=== PATIENT | female | born 1950 | race Caucasian/White ===

== ENCOUNTER → 2017-03-23 | Outpatient (CLI) | payer MEDICARE, OTHER | END | disposition home or self-care (01) | LOC: GMAJ 17:15 | PROVIDERS: ATTEND Family Medicine | DX: D51.3 Other dietary vitamin B12 deficiency anemia (principal); E55.9 Vitamin D deficiency, unspecified ==

== ENCOUNTER → 2017-05-30 | Outpatient (CLI) | payer MEDICARE, OTHER | END | disposition home or self-care (01) | LOC: LAB.O 14:28 | PROVIDERS: ATTEND Internal Medicine | DX: K74.60 Unspecified cirrhosis of liver (principal); K76.0 Fatty (change of) liver, not elsewhere classified ==

== ENCOUNTER → 2017-12-02 | Outpatient (CLI) | payer MEDICARE, OTHER | LOC: LAB.O 14:56 | PROVIDERS: ATTEND Internal Medicine | DX: K74.60 Unspecified cirrhosis of liver (principal) ==

== ENCOUNTER → 2018-03-28 | Outpatient (CLI) | payer MEDICARE, OTHER | LOC: GMAL 16:37 | PROVIDERS: ATTEND Family Medicine | DX: D51.3 Other dietary vitamin B12 deficiency anemia (principal); E55.9 Vitamin D deficiency, unspecified ==

== ENCOUNTER → 2018-06-21 | Outpatient (CLI) | payer MEDICARE, OTHER | LOC: LAB.O 14:42 | PROVIDERS: ATTEND Internal Medicine | DX: K74.60 Unspecified cirrhosis of liver (principal); K76.0 Fatty (change of) liver, not elsewhere classified; I85.10 Secondary esophageal varices without bleeding; T82.868A Thrombosis due to vascular prosthetic devices, implants and grafts, initial encounter ==

== ENCOUNTER → 2018-06-22 | Outpatient (CLI) | payer MEDICARE, OTHER ==
--- NOTE | 2018-06-23 14:06 | MAM ---
EXAM DESCRIPTION: 3D Screening BILATERAL : Digital Mammography. CLINICAL HISTORY: 68 years Female SCREENING . No personal history or family history of breast cancer. Childbirth. Postmenopausal: Hysterectomy. Taking HRT 5 or more years ago. "Fibrocystic breast tissue.". Lifetime risk of developing breast cancer (Tyrer-Cuzick model) is 6.1 %. COMPARISON: 2-D digital screening bilateral study 02/18/2015. No prior reports available. TECHNIQUE: Bilateral CC and MLO projection full-field images, Digital tomosynthesis mammographic technique. Bilateral digital 2-D full-field MLO images. CAD not utilized. FINDINGS: The breast parenchymal density pattern is: Scattered areas of fibroglandular density. No skin thickening or nipple retraction. Tissue is heterogeneously dense in the anterior thirds including retroareolar regions bilaterally. No new focal, stellate mass or density, focal asymmetry , and no suspicious microcalcifications bilaterally. Stable mammograms compared to prior study. Taking into account, differences in mammographic technique. IMPRESSION: Benign exam. BIRAD CATEGORY: 2 BENIGN FINDINGS. RECOMMENDATIONS: FOLLOW UP: Routine digital bilateral screening, one year interval from May 2018. Written communication explaining the IMPRESSION and follow-up, will be mailed to the patient and referring health care provider. According to the [employer], yearly mammograms are recommended starting at age 40 and continuing as long as a woman is in good health. Any breast change noted on a breast self-exam should be reported promptly to the patient's healthcare provider. Breast MRI is recommended for women with an approximately 20-25% or greater lifetime risk of breast cancer, including women with a strong family history of breast or ovarian cancer and women who have been treated for Hodgkin's disease. A negative mammographic report should not delay tissue diagnosis in patients with significant clinical history or physical findings. Extremely dense breast tissue limits the sensitivity of digital mammography. Electronically signed by: Roman Junior MD 06/23/2018 2:05 PM CDT
== END ==
LOC: MAMMO 14:00
PROVIDERS: ATTEND Family Medicine
DX: Z12.31 Encounter for screening mammogram for malignant neoplasm of breast (principal)

== ENCOUNTER → 2018-09-26 | Outpatient (CLI) | payer MEDICARE, OTHER | LOC: GMAL 17:01 | PROVIDERS: ATTEND Family Medicine | DX: K74.60 Unspecified cirrhosis of liver (principal); K76.0 Fatty (change of) liver, not elsewhere classified; I10 Essential (primary) hypertension; E55.9 Vitamin D deficiency, unspecified; R79.89 Other specified abnormal findings of blood chemistry ==

== ENCOUNTER → 2018-11-15 | Outpatient (CLI) | payer MEDICARE, OTHER ==
--- NOTE | 2018-11-16 14:35 | US ---
EXAM DESCRIPTION: Abdomen,Complete: Ultrasound. CLINICAL HISTORY: LIVER CIRRHOSIS COMPARISON: None Available. TECHNIQUE: Transabdominal scannin-dimensional and Doppler modes. FINDINGS: Gallbladder: Normal size and echogenicity with no stones or sludge. No wall thickening, 2 mm, and no or fluid. Nontender with transducer pressure. Common bile duct: Normal caliber 3 mm. Liver: Long axis right lobe 14 cm. Heterogeneous increased density. Normal hepatopedal flow of the portal vein. Normal caliber. No intrahepatic biliary dilatation. Minimal lobulation of the capsule. No ascites. Pancreas: Included tissue normal echogenicity and ducts not seen. Abdominal aorta: 2.5 cm proximally and 2.7 cm distally with ectasia. IVC: visualized; normal caliber. Spleen normal echogenicity; long axis measurement is 16.2 cm. Right kidney: 9.1 cm long axis. Thin cortex with increased echogenicity but less than the liver. Lobulated capsule No hydronephrosis or perinephric fluid. 1.5 cm anechoic cyst. Left kidney: 11.8 cm long axis with thin cortex, lobulation of the capsule, and increased echogenicity. No hydronephrosis or perinephric fluid. 3.4 x 2.2 cm cyst. IMPRESSION: 1. Small echogenicity dense echogenic liver with lobulated capsule consistent with cirrhosis. Hepatopedal portal vein flow. Normal ducts. No ascites. 2. Splenomegaly with no focal lesions. No ascites. 3. Bilateral kidneys with chronic disease indicated by increased echogenicity, thin cortex and lobulated capsule. Pancreas and gallbladder are unremarkable. Normal caliber of the common bile duct. 4. Ectatic aorta but no aneurysm. Normal caliber of the IVC. Electronically signed by: Roman Junior MD 11/16/2018 2:33 PM [facility]
== END ==
LOC: US 13:07
PROVIDERS: ATTEND Internal Medicine
DX: K74.60 Unspecified cirrhosis of liver (principal); R16.1 Splenomegaly, not elsewhere classified; I77.819 Aortic ectasia, unspecified site

== ENCOUNTER → 2019-04-11 | Outpatient (CLI) | payer MEDICARE, OTHER | LOC: LAB.O 15:40 | PROVIDERS: ATTEND Internal Medicine | DX: K74.60 Unspecified cirrhosis of liver (principal) ==

== ENCOUNTER → 2019-04-20 | Outpatient (CLI) | payer MEDICARE, OTHER | LOC: GMAL 13:54 | PROVIDERS: ATTEND Family Medicine | DX: E53.8 Deficiency of other specified B group vitamins (principal); E11.9 Type 2 diabetes mellitus without complications; R53.83 Other fatigue; Z79.899 Other long term (current) drug therapy ==

== ENCOUNTER → 2019-05-22 | Outpatient (CLI) | payer MEDICARE, OTHER ==
--- NOTE | 2019-05-23 15:06 | US ---
EXAM DESCRIPTION: Abdomen,Complete: Ultrasound. CLINICAL HISTORY: AAA, CIRRHOSIS COMPARISON: None Available. TECHNIQUE: Transabdominal scannin-dimensional and Doppler modes.. Technically difficult study due to patient body habitus. FINDINGS: Gallbladder: No intraluminal stones or sludge. Mild wall thickening 3.5 mm. No surrounding fluid. Nontender with transducer pressure. Common bile duct: 3.5 mm normal caliber. Liver: Long axis of the right lobe is 15.1 cm. Homogeneous echogenicity which is increased. Smooth capsule with no ascites. Normal ducts and caliber of the portal vein with hepatopedal flow. Pancreas: Not well seen. Duct not seen.. Abdominal aorta: 3.44 cm proximally, 3.1 cm mid aorta and 2.5 cm distal aorta. IVC: visualized; normal caliber. Spleen normal echogenicity; long axis measurement is 15.5 cm. Enlarged. Right kidney: 9.9 cm long axis with cortical thinning but normal echogenicity. No echogenic stones, no hydronephrosis, no perinephric fluid. Left kidney: 9.4 cm long axis with cortical thinning but normal cortical echogenicity. No hydronephrosis, no echogenic stones, and no perinephric fluid. IMPRESSION: 1. Steatosis of the liver but not enlarged. Normal ducts and vessels. Smooth capsule but not ascites. Pancreas not well seen. 2. Gallbladder wall thickening but no intraluminal stones or sludge. No pericholecystic fluid. Normal caliber common bile duct. 3. Splenic enlargement. Normal caliber of the IVC. 4. Bilateral kidneys with thin cortex but normal echogenicity. No hydronephrosis or perinephric fluid. 5. 3.4 cm abdominal aortic aneurysm. Recommend follow-up every 3 years. Reference: J Am Tiffani Radiol 2013;10:789-794. Electronically signed by: Roman Junior MD 05/23/2019 3:05 PM CDT
== END ==
LOC: US 14:50
PROVIDERS: ATTEND Family Medicine
DX: I71.3 Abdominal aortic aneurysm, ruptured (principal); K74.60 Unspecified cirrhosis of liver; K76.0 Fatty (change of) liver, not elsewhere classified; K87 Disorders of gallbladder, biliary tract and pancreas in diseases classified elsewhere

== ENCOUNTER 2019-07-19 11:47 | Emergency (ER) | payer MEDICARE, OTHER ==
[2019-07-19] MEDS ORDERED: SODIUM CHLORIDE 0.9% (FLUSH) 10 ML SYG IV PRN (12:10)
--- NOTE | 2019-07-19 12:59 | CT ---
EXAM DESCRIPTION: Head CLINICAL HISTORY: expressive aphasia x 24 hours COMPARISON: None TECHNIQUE: Noncontrast transaxial CT images of the head are obtained from base to vertex. This exam was performed according to our departmental dose-optimization program, which includes automated exposure control, adjustment of the mA and/or kV according to patient size and/or use of iterative reconstruction technique. FINDINGS: The midline structures are not displaced. Sulci are age-appropriate. There are areas of decreased attenuation in the periventricular white matter and the white matter of the centrum semiovale. There is no evidence of mass, mass-effect, hydrocephalus, or acute intracranial hemorrhage. No abnormal extra axial fluid collection is seen. Bone windows show no evidence of depressed skull fracture. The visualized paranasal sinuses are unremarkable. IMPRESSION: 1. Age-appropriate atrophy with evidence of old small vessel ischemic type changes seen. 2. No acute abnormality is seen on noncontrast CT of the head. Electronically signed by: Vargas Serrano MD 07/19/2019 12:57 PM CDT
--- NOTE | 2019-07-19 13:02 | RAD ---
EXAM DESCRIPTION: Chest,1 View CLINICAL HISTORY: expressive aphasia x 24 hours COMPARISON: April 04, 2018 TECHNIQUE: Single frontal view of the chest FINDINGS: Mild calcific atherosclerosis and tortuosity of thoracic aorta. Cardiac silhouette shows normal heart size. Pulmonary vascularity is within normal limits. Lungs show no confluent infiltrates. No perfusion. No pneumothorax. Visualized osseous structures show no destructive lesions. IMPRESSION: No acute cardiopulmonary process. Electronically signed by: New Ward MD 07/19/2019 1:01 PM CDT
[2019-07-19] MEDS ORDERED: ONDANSETRON INJ 4 MG/2 ML VIAL ONE (13:46)
[2019-07-19] MEDS ORDERED: ONDANSETRON INJ 4 MG/2 ML VIAL IV ONE ×2 (13:49→15:35)
--- NOTE | 2019-07-19 14:55 | ED.PDOC ---
History of Present Illness - General Chief Complaint: GI Problem Stated Complaint: WEAKNESS Time Seen by Provider: 07/19/19 12:10 Source: patient, RN notes reviewed, Vital Signs reviewed, family - , RN/MD - Dr. David Exam Limitations: no limitations - History of Present Illness Initial Comments: Pt was sent from Dr. David' office b/c of anemia/gi bleed but also because of an epxpressive aphasia with concerns for a sub acute stroke. Pt noted the aphasia starting yesterday morning. Pt has had black tarry stool for the last few days. Pt also c/o dysuria. Pt denies f/c/n/v/d. No blurry vision but pt is dizzy and has nystagmus. Severity: moderate Improving Factors: nothing Worsening Factors: nothing Associated Symptoms: malaise, weakness Allergies/Adverse Reactions: Allergies Amoxicillin [From Augmentin] Adverse Reaction (Verified 07/19/19 12:06) Clavulanic Acid [From Augmentin] Adverse Reaction (Verified 07/19/19 12:06) Prochlorperazine [From Compazine] Adverse Reaction (Verified 07/19/19 12:06) Review of Systems - Review of Systems Constitutional: States: see HPI EENTM: States: see HPI Respiratory: States: no symptoms reported Cardiology: States: no symptoms reported Gastrointestinal/Abdominal: States: see HPI Genitourinary: States: see HPI, dysuria Musculoskeletal: States: no symptoms reported Skin: States: no symptoms reported Neurological: States: other - expressive aphasia Endocrine: States: no symptoms reported Hematologic/Lymphatic: States: no symptoms reported Past Medical History (General) - Patient Medical History Hx Asthma: No Hx of COPD: No Hx Congestive Heart Failure: No Hx Hypertension: Yes Hx Diabetes: No Hx Gastroesophageal Reflux: Yes Hx Cancer: No Hx Hepatitis C: No Surgical History: tonsillectomy, Hysterectomy - Vaccination History Hx Tetanus, Diphtheria Vaccination: Yes Hx Influenza Vaccination: Yes Hx Pneumococcal Vaccination: No - Social History Hx Tobacco Use: No Hx Alcohol Use: No Hx Substance Use: No Hx Substance Use Treatment: No Hx Depression: No - Female History Patient is a Female of Child Bearing Age (10 -59 yrs old): No Family Medical History - Family History Mother Family History: Unknown Physical Exam - Physical Exam General Appearance: Alert, Anxious, Well Developed, Well Groomed, Well Hydrated, Well Nourished Eye Exam: bilateral normal Ears, Nose, Throat: hearing grossly normal, normal ENT inspection, normal pharynx Neck: non-tender, full range of motion, supple, normal inspection Respiratory: chest non-tender, lungs clear, normal breath sounds, no respiratory distress, no accessory muscle use, respiratory distress Cardiovascular/Chest: normal peripheral pulses, regular rate, rhythm, no edema, no gallop, no JVD, no murmur Peripheral Pulses: radial,right: 2+, radial,left: 2+ Gastrointestinal/Abdominal: normal bowel sounds, non tender, soft, no organomegaly Rectal Exam: heme positive stool Back Exam: normal inspection, no CVA tenderness, no vertebral tenderness Extremity: normal range of motion, non-tender, normal inspection, no pedal edema 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, no motor/sensory deficits, alert, normal mood/affect, oriented x 3, aphasia, other - pt with mild expressive aphasia Skin Exam: normal color, warm/dry Lymphatic: no adenopathy Progress - Progress Progress: 07/19/19 15:01 07/19/19 12:10 IV Care:Saline Lock per Protoc QSHIFT Telemetry .ONCE Sodium Chloride 0.9% (Flush) [Saline Flush Syringe] 10 ml IV PRN PRN 07/19/19 12:15 EKG STAT Laboratory Results - last 24 hr 07/19/19 07/19/19 07/19/19 12:25 12:25 12:25 WBC 10.2 RBC 2.93 L Hgb 8.9 L Hct 26.7 L MCV 91.0 MCH 30.4 MCHC 33.4 RDW 16.5 H Plt Count 95 L MPV 10.4 Absolute Neuts (auto) 7.40 H Absolute Lymphs (auto) 2.20 Absolute Monos (auto) 0.40 Absolute Eos (auto) 0.10 Absolute Basos (auto) 0.10 Neutrophils % 72.8 Lymphocytes % 21.6 Monocytes % 4.3 Eosinophils % 0.5 L Basophils % 0.8 PT 12.1 H INR 1.21 H PTT (SP) 22.1 Sodium 143 Potassium 4.0 Chloride 115 H Carbon Dioxide 18 L Anion Gap 14.0 BUN 57 H Creatinine 0.84 BUN/Creatinine Ratio 67.9 H POC Glucose Random Glucose 120 H Serum Osmolality 302.0 H Calcium 9.5 Total Bilirubin 1.4 H AST 43 H ALT 36 Alkaline Phosphatase 60 Creatine Kinase 53 CK-MB (CK-2) 1.1 CK-MB (CK-2) % Not Reportable Troponin I < 0.02 Serum Total Protein 6.5 Albumin 3.6 Globulin 2.9 Albumin/Globulin Ratio 1.2 Stool Occult Blood Patient ABO/Rh Antibody Screen 07/19/19 07/19/19 07/19/19 12:25 12:25 13:25 WBC RBC Hgb Hct MCV MCH MCHC RDW Plt Count MPV Absolute Neuts (auto) Absolute Lymphs (auto) Absolute Monos (auto) Absolute Eos (auto) Absolute Basos (auto) Neutrophils % Lymphocytes % Monocytes % Eosinophils % Basophils % PT INR PTT (SP) Sodium Potassium Chloride Carbon Dioxide Anion Gap BUN Creatinine BUN/Creatinine Ratio POC Glucose 121 H Random Glucose Serum Osmolality Calcium Total Bilirubin AST ALT Alkaline Phosphatase Creatine Kinase CK-MB (CK-2) CK-MB (CK-2) % Troponin I Serum Total Protein Albumin Globulin Albumin/Globulin Ratio Stool Occult Blood Positive Patient ABO/Rh O POSITIVE Antibody Screen Negative 07/19/19 15:03 Pt's symptoms have not changed. I believe pt had a mild CVA yesterday and she also has an upper gi bleed. After d/w her gi specialist, Dr. Emiliano Elena and he requests we send her to [facility]. I will arrange transfer and admission. 07/19/19 20:19 Noel Carranza M.D. #[id number] - Results/Orders Results/Orders: EXAM DESCRIPTION: CT Head w/o contrast. CLINICAL HISTORY: expressive aphasia x 24 hours COMPARISON: None TECHNIQUE: Noncontrast transaxial CT images of the head are obtained from base to vertex. This exam was performed according to our departmental dose-optimization program, which includes automated exposure control, adjustment of the mA and/or kV according to patient size and/or use of iterative reconstruction technique. FINDINGS: The midline structures are not displaced. Sulci are age-appropriate. There are areas of decreased attenuation in the periventricular white matter and the white matter of the centrum semiovale. There is no evidence of mass, mass-effect, hydrocephalus, or acute intracranial hemorrhage. No abnormal extra axial fluid collection is seen. Bone windows show no evidence of depressed skull fracture. The visualized paranasal sinuses are unremarkable. IMPRESSION: 1. Age-appropriate atrophy with evidence of old small vessel ischemic type changes seen. 2. No acute abnormality is seen on noncontrast CT of the head. Electronically signed by: Vargas Serrano MD 07/19/2019 12:57 PM CDT Chest,1 View CLINICAL HISTORY: expressive aphasia x 24 hours COMPARISON: April 04, 2018 TECHNIQUE: Single frontal view of the chest FINDINGS: Mild calcific atherosclerosis and tortuosity of thoracic aorta. Cardiac silhouette shows normal heart size. Pulmonary vascularity is within normal limits. Lungs show no confluent infiltrates. No perfusion. No pneumothorax. Visualized osseous structures show no destructive lesions. IMPRESSION: No acute cardiopulmonary process. Electronically signed by: New Ward MD 07/19/2019 1:01 PM CDT - [id number] - EKG/XRAY/CT Comments: NSR@92 bpm, possible ant infarct, age indeterminate, abnormal ekg. Departure - Departure Clinical Impression: Upper GI bleed, Dysuria CVA (cerebral vascular accident) Qualifiers: CVA mechanism: unspecified Qualified Code(s): I63.9 - Cerebral infarction, unspecified Time of Disposition: 15:11 - awaiting transfer Disposition: Transfer to Hospital Condition: Fair Departure Forms: ED Discharge - Pt. Copy, Patient Portal Self Enrollment Referrals: New David III, MD [Primary Care Provider] - 1-2 Weeks Critical Care Note - Critical Care Note Total Time (mins): 45 - Does not include time for procedures
[2019-07-19 18:11] VITALS: BP 139/66; TEMP 98; O2SAT 98
== END 2019-07-19 17:55 | disposition short-term general hospital (02) ==
LOC: ER 11:47
DX: I63.9 Cerebral infarction, unspecified (principal); R47.01 Aphasia; K92.1 Melena; R30.0 Dysuria; R94.31 Abnormal electrocardiogram [ECG] [EKG]; I10 Essential (primary) hypertension; K21.9 Gastro-esophageal reflux disease without esophagitis; Z88.1 Allergy status to other antibiotic agents; Z88.8 Allergy status to other drugs, medicaments and biological substances
CPT/HCPCS: 36415; 36416; 70450; 71045; 80053; 81001; 82270; 82550; 82553; 82948; 84484; 85025; 85610; 85730; 86850; 86900; 86901; 87086; 93005; J2405

== ENCOUNTER → 2019-07-24 | Outpatient (CLI) | payer MEDICARE, OTHER | LOC: GRHH 11:49 | PROVIDERS: ATTEND Family Medicine | DX: D62 Acute posthemorrhagic anemia (principal); K75.81 Nonalcoholic steatohepatitis (NASH) ==

== ENCOUNTER → 2019-07-26 | Outpatient (CLI) | payer MEDICARE, OTHER | LOC: GMAL 14:20 | PROVIDERS: ATTEND Family Medicine | DX: D50.0 Iron deficiency anemia secondary to blood loss (chronic) (principal) ==

== ENCOUNTER 2019-08-08 13:09 | Observation (INO) | payer MEDICARE, OTHER ==
--- NOTE | 2019-08-09 16:29 | HP ---
SUPERVISING PHYSICIAN: Attila Graham M.D. CHIEF COMPLAINT: Weakness and change in mental status. HISTORY OF PRESENT ILLNESS: This is a 69 year-old female patient who has a history of nonalcoholic fatty liver disease. She was actually in the Emergency Room in the hospital on 07/19/19. At that time she was found to have similar symptoms. She had some mental status changes with some mild aphasia and was found to have a hemoglobin at that was 8.9 with hematocrit 26.7. She was given some hydration and was found to have some gastrointestinal bleeding. She was sent to [place] and found to have esophageal varices. She had 5 of her varices banded. Her hemoglobin dropped to as low as 6. She has been home approximately 3 weeks. Today she again had some altered mental status and with extreme weakness. She was in the bathtub and her home health nurse came for a visit. The patient was unable to get out of the tub and the nurse actually had to take the door off the hinges to get to the patient. She assisted her out of the bathroom and then Dr. David was called. Lab had been done. WBCs were 2,000 with hemoglobin 9.5, hematocrit 29, platelets 54. She does have chronic thrombocytopenia and leukopenia. Electrolytes were basically within normal limits. Iron saturation was low at 18.[address] David spoke to the physician that did the procedure 3 weeks ago and he felt that she could be placed in the hospital for observation as well as close monitoring of any possible bleeding as well as her monitoring her H&H. She was directly admitted to the hospital in stable condition. Her initial vital signs showed temperature 97.8, heart rate 70, blood pressure 131/77, respiratory rate 16, O2 sat 99% on 2 liters nasal cannula. The patient was in stable condition after her admission for observation to the Medical/Surgical Unit. PAST MEDICAL HISTORY: 1. Hypertension. 2. Nonalcoholic fatty liver disease with cirrhosis. 3. Recent diagnoses of esophageal varices with banding approximately 3 weeks ago. 4. Portal hypertension secondary to cirrhosis. 5. Type 2 diabetes mellitus. PAST SURGICAL HISTORY: 1. Tonsillectomy and adenoidectomy. 2. Dilatation and curettage for retained placental fragments. 3. Hysterectomy. 4. Cervical laminectomy. 5. Exploratory laparotomy for ruptured corpus luteum cyst. 6. Excision of lipoma from right axilla. 7. Exploratory laparotomy for lysis of adhesions. 8. Bunionectomy of the left great toe. OUTPATIENT MEDICATIONS: Per the EMR and awaiting verification. ALLERGIES: AMOXICILLIN, AUGMENTIN AND COMPAZINE. SOCIAL HISTORY: She is a retired nurse. She is . She has 2 children. She has [facility]. She has smoked for many years but only smoked 1 to 5 cigarettes daily. She quit about 1 month ago. She drinks alcohol very infrequently and denies any illicit drug use. REVIEW OF SYSTEMS: GENERAL: Positive for fatigue. Negative for fever or weight changes. HEENT: Negative for sinus symptoms, ear pain, vision changes or sore throat. RESPIRATORY: Negative for coughing wheezing or shortness of breath. CARDIAC: Negative for chest pain, palpitations or tachycardia. GASTROINTESTINAL: Negative for nausea, vomiting, diarrhea or constipation. Please see the History of Present Illness. GENITOURINARY: Negative for hematuria, dysuria or polyuria. SKIN: Negative for lesions or rashes. NEUROLOGIC: Positive for weakness as well as some mild aphasia. Negative for headaches or seizures. HEMATOLOGIC: As per the History of Present Illness. PHYSICAL EXAMINATION: VITAL SIGNS: Temperature 97.8, heart rate 70, blood pressure 131/77, respiratory rate 16, O2 sat 99% on 2 liters nasal cannula. GENERAL: This is a 69 year-old female patient who is lying in her hospital bed. She is in no acute distress. HEENT: Normocephalic and atraumatic. Pupils are equal and reactive. Oropharynx is clear. NECK: Supple without mass. RESPIRATORY: Essentially clear to auscultation bilaterally. CHEST: There is equal rise and fall of the chest with inspiration and expiration. CARDIOVASCULAR: Regular rate and rhythm. GASTROINTESTINAL: Abdomen is soft, nondistended, non-tender. Bowel sounds are positive. EXTREMITIES: +1 edema bilaterally. No cyanosis or clubbing. SKIN: Warm and dry. NEUROLOGIC: Her speech is slowed and she takes some time to answer questions, but otherwise her cranial nerves II-XII are grossly intact. LABORATORY: Labs and films are as per the History of Present Illness. ASSESSMENT: 1. Anemia, normochromic/microcytic most likely due to esophageal varices. 2. Nonalcoholic fatty liver disease with cirrhosis may be contributing to #1. 3. Altered mental status that has improved with mild dysphasia. 4. Recent diagnosis of esophageal varices. She had banding about 3 weeks ago. 5. Portal hypertension. 6. Diabetes mellitus type 2. 7. Hypertension on medications. 8. Chronic thrombocytopenia secondary to #2. 9. Leukopenia, chronic. PLAN: The patient has been placed in Observation. She will be gently hydrated overnight. I will recheck her CBC at 10:00 tonight and will recheck her labs in the morning. If she deteriorates overnight we can transfer to [facility]. Otherwise, neuro checks are ordered and I'll restart her home meds once verified. I've started a PPI for ulcer prophylaxis and SDCs for DVT prophylaxis. We will monitor closely and follow as needed. #[id number] [facility]
[2019-08-09] MEDS ORDERED: ONDANSETRON INJ 4 MG/2 ML VIAL IV PRN (17:06)
[2019-08-09] MEDS ORDERED: SODIUM CHLORIDE 0.9% (FLUSH) 10 ML SYG IV PRN (17:06)
[2019-08-09] MEDS ORDERED: SODIUM CHLORIDE 0.45% 1000ML 1,000 ML IVS ONE (17:19)
[2019-08-09] MEDS: SODIUM CHLORIDE 0.45% 1000ML 1,000 ML IVS PRN (17:22)
[2019-08-09] MEDS ORDERED: IV SET AND CAP CHANGE INJ INJ SCH (17:30)
[2019-08-09] MEDS ORDERED: traMADol HCL 50 MG TAB PO PRN (20:01)
[2019-08-09] MEDS ORDERED: NON-FORMULARY MEDICATION 1 EA MIS (Temazepam [Restoril] 30 MG) PO SCH (21:00)
[2019-08-09] MEDS ORDERED: TEMAZEPAM 15 MG CAP ONE (21:17)
[2019-08-09] MEDS: SODIUM CHLORIDE 0.9% (FLUSH) 10 ML SYG IV SCH (21:48)
[2019-08-09] MEDS: CYCLOBENZAPRINE HCL 10 MG TAB PO SCH (21:48)
[2019-08-10] MEDS ORDERED: SODIUM CHLORIDE 0.45% 1000ML 1,000 ML IVS ONE (02:57)
[2019-08-10] MEDS: SODIUM CHLORIDE 0.45% 1000ML 1,000 ML IVS PRN (02:58)
[2019-08-10] MEDS: PANTOPRAZOLE SODIUM IV 40 MG VIAL IV SCH (06:29)
[2019-08-10] MEDS ORDERED: ACETAMINOPHEN 325 MG TAB PO ONE (08:41)
[2019-08-10] MEDS ORDERED: diphenhydrAMINE HCL 50 MG/ML VIAL IV ONE (08:41)
[2019-08-10] MEDS ORDERED: FUROSEMIDE INJ 40 MG/4 ML VIAL IV ONE (08:41)
[2019-08-10] MEDS ORDERED: SODIUM CHLORIDE 0.9% 500ML 500 ML IVS SCH (09:00)
[2019-08-10] MEDS: FUROSEMIDE 40 MG TAB PO SCH (09:40)
[2019-08-10] MEDS: SODIUM CHLORIDE 0.9% (FLUSH) 10 ML SYG IV SCH ×2 (09:42→21:37)
[2019-08-10] MEDS: SPIRONOLACTONE 25 MG TAB PO SCH (09:42)
[2019-08-10] MEDS ORDERED: SODIUM CHLORIDE 0.9% 250ML 250 ML ONE (11:21)
[2019-08-10] MEDS ORDERED: SODIUM CHLORIDE 0.9% 250ML 250 ML IVS ONE (16:44)
--- NOTE | 2019-08-10 17:10 | PN ---
DATE: 08/10/19 SUPERVISING PHYSICIAN: Attila Graham MD SUBJECTIVE: The patient is sitting up in bed. She still feels quite weak and at times continues to slur her wording. She has improved with some hydration. She has no complaints of chest pain or shortness of breath. She just has a difficult time moving around and feels like her thinking is "muddled". OBJECTIVE: VITAL SIGNS: Temperature 97.9, heart rate 63, blood pressure 130/72, respiratory rate 20, oxygen saturation 98% on room air. CHEST: Essentially clear to auscultation bilaterally. CARDIAC: Regular rate and rhythm. GI: Abdomen is soft, nondistended, non-tender. Bowel sounds are positive. NEURO: She is awake and oriented x3. She does have some slurring of her words as well as slurred speech but it has improved from yesterday. LABORATORY: CBC from last night has a white count of 1.8, hemoglobin 9, hematocrit 27.7, platelet count 47,000. This morning, her WBCs were 1.3 with a hemoglobin of 8.1, hematocrit 24.4 and platelet count of 40,000. Electrolytes are within normal limits with the exception her potassium is slightly low at 3.4. Her magnesium is slightly low at 1.7. Stool guaiac was negative. All other labs and films have been reviewed via the EMR. ASSESSMENT: 1. Anemia, normochromic/microcytic most likely due to esophageal varices. Since admission, her hemoglobin as dropped almost 2 grams. 2. Nonalcoholic fatty liver disease with cirrhosis may be contributing to #1. 3. Altered mental status that has improved with continued mild dysphasia. 4. Recent diagnosis of esophageal varices. She had banding about 3 weeks ago. 5. Portal hypertension. 6. Diabetes mellitus type 2. 7. Hypertension on medications. 8. Chronic thrombocytopenia secondary to #2. 9. Leukopenia, chronic. PLAN: We will continue present supportive care. I have ordered 2 units of packed red blood cells to be given today as well as some lab for in the morning. She has dropped almost 2 grams on her hemiglobin in 24 hours. I have given her some magnesium and potassium supplementation. We have also put her in reverse isolation due to her pancytopenia. Her physician at [facility], Dr. Wilcox, said the patient could be transferred if there were any problems with bleeding. His telephone number is [phone], Dr. Wilcox, at [facility] in [facility]. I spoke with her primary care physician, Dr. David, today and plan for discharge tomorrow as long as her lab is stable. She will have a followup appointment with him on Tuesday at 3:15. She is already scheduled for an EGD and colonoscopy on August 22 in [facility]. We will continue to monitor closely and follow as needed. #[id number] [facility]
[2019-08-10] MEDS ORDERED: TEMAZEPAM 15 MG CAP PO SCH (21:00)
[2019-08-10] MEDS: CYCLOBENZAPRINE HCL 10 MG TAB PO SCH (21:27)
[2019-08-11] MEDS: PANTOPRAZOLE SODIUM IV 40 MG VIAL IV SCH (06:01)
[2019-08-11] MEDS: SPIRONOLACTONE 25 MG TAB PO SCH (09:16)
[2019-08-11] MEDS: FUROSEMIDE 40 MG TAB PO SCH (09:16)
[2019-08-11] MEDS: SODIUM CHLORIDE 0.9% (FLUSH) 10 ML SYG IV SCH (09:16)
[2019-08-11 11:07] VITALS: BP 115/75; TEMP 98; O2SAT 96
--- NOTE | 2019-08-12 22:38 | DS ---
SUPERVISING PHYSICIAN: ADMISSION DIAGNOSIS: 1. Anemia, normochromic/microcytic most likely due to esophageal varices. 2. Nonalcoholic fatty liver disease with cirrhosis may be contributing to #1. 3. Altered mental status that has improved with mild dysphasia. 4. Recent diagnosis of esophageal varices. She had banding about 3 weeks ago. 5. Portal hypertension. 6. Diabetes mellitus type 2. 7. Hypertension on medications. 8. Chronic thrombocytopenia secondary to #2. 9. Leukopenia, chronic. DISCHARGE DIAGNOSIS: 1. Anemia, normochromic/microcytic most likely due to esophageal varices requiring transfusion of 2 units of packed red blood cells showing to be stable. 2. Nonalcoholic fatty liver disease with cirrhosis may be contributing to #1. 3. Altered mental status secondary to #1, resolved. 4. Recent diagnosis of esophageal varices. She had banding about 3 weeks ago. 5. Portal hypertension. 6. Diabetes mellitus type 2. 7. Hypertension on medications. 8. Chronic thrombocytopenia secondary to #2. 9. Leukopenia, chronic. REASON FOR HOSPITALIZATION: This is a 69 year-old female patient who has a history of nonalcoholic fatty liver disease. She was actually in the Emergency Room in the hospital on 07/19/19. At that time she was found to have similar symptoms. She had some mental status changes with some mild aphasia and was found to have a hemoglobin at that was 8.9 with hematocrit 26.7. She was given some hydration and was found to have some gastrointestinal bleeding. She was sent to [place] and found to have esophageal varices. She had 5 of her varices banded. Her hemoglobin dropped to as low as 6. She has been home approximately 3 weeks. Today she again had some altered mental status and with extreme weakness. She was in the bathtub and her home health nurse came for a visit. The patient was unable to get out of the tub and the nurse actually had to take the door off the hinges to get to the patient. She assisted her out of the bathroom and then Dr. David was called. Lab had been done. WBCs were 2,000 with hemoglobin 9.5, hematocrit 29, platelets 54. She does have chronic thrombocytopenia and leukopenia. Electrolytes were basically within normal limits. Iron saturation was low at 18.[address] David spoke to the physician that did the procedure 3 weeks ago and he felt that she could be placed in the hospital for observation as well as close monitoring of any possible bleeding as well as her monitoring her H&H. She was directly admitted to the hospital in stable condition. Her initial vital signs showed temperature 97.8, heart rate 70, blood pressure 131/77, respiratory rate 16, O2 sat 99% on 2 liters nasal cannula. The patient was in stable condition after her admission for observation to the Medical/Surgical Unit. LABORATORY: Admission white count was 2,000, discharge white count was 1,500. Hemoglobin initially was 9.5 and 29.0, with 2 units of packed red blood cells at discharge hemoglobin was 10.2, hematocrit 30. Platelet count was low at 54,000 on admission, at discharge was 43,000. Differential showed to be without a left shift. Chemistries showed normal electrolytes on admission and at discharge electrolytes were normal except just a mildly low potassium at 3.4. Bilirubin was elevated at 2.0 with AST and ALT were both normal. Iron studies showed iron at 68 with TIBC of 361 with iron saturation of 18 and normal ferritin at 49.4. Urinalysis was within normal limits. She had on stool occult blood that was negative. RADIOLOGY: She had no radiographic studies while in the hospital. HOSPITAL COURSE: Ms. Glez was admitted for questionable GI bleed, upper, due to esophageal varices. She was transfused 2 units of packed red blood cells showing to be stable with no complications. She was hemodynamically stable with discharge vitals showing temperature 98, pulse 71, blood pressure 115/75, respirations 16, satting 96% on room air. PHYSICAL EXAMINATION: GENERAL: She was alert and appeared to be in no acute distress. CHEST: Clear to auscultation. HEART: Regular rate and rhythm. ABDOMEN: Soft, non-tender. Positive bowel sounds. EXTREMITIES: Without any edema. NEUROLOGIC: She was alert and oriented times three. She was noted to be stable enough to continue with outpatient management and to followup with her primary care provider, Dr. David, as well as GI specialist once discharged. PLAN: Ms. Glez was discharged on 08/11/19 with instructions to followup with Dr. David on 08/13/19 at 1515. She was to resume her usual diet. Activity is increase as tolerated. She was to wear a mask when out in public and to resume her home medications as directed. She was told to return to the [facility] if she had any concerning symptoms. Medications at discharge were continued as prior to hospitalization. DISPOSITION: The patient was discharged home. Condition on discharge was stable and improved. #[id number] [facility]
== END 2019-08-11 11:40 | disposition home or self-care (01) ==
LOC: GRHH 13:09 → MS 08-09 16:27 → INTOOBSV 08-09 16:27
PROVIDERS: ADMIT Nurse Practitioner Acute Care; ATTEND Nurse Practitioner Family
DX: D50.9 Iron deficiency anemia, unspecified (principal); I85.10 Secondary esophageal varices without bleeding; K76.0 Fatty (change of) liver, not elsewhere classified; K74.60 Unspecified cirrhosis of liver; R41.82 Altered mental status, unspecified; R47.02 Dysphasia; K76.6 Portal hypertension; E11.9 Type 2 diabetes mellitus without complications; I10 Essential (primary) hypertension; D69.6 Thrombocytopenia, unspecified; D72.819 Decreased white blood cell count, unspecified; D61.818 Other pancytopenia; R53.1 Weakness; Z98.890 Other specified postprocedural states; Z88.0 Allergy status to penicillin; Z88.1 Allergy status to other antibiotic agents; Z88.8 Allergy status to other drugs, medicaments and biological substances; Z87.891 Personal history of nicotine dependence
CPT/HCPCS: 96374; 96375; J1200; J1940; J7799 ×2; J7050; 80048; 82270; 80053 ×2; 36415 ×3; 81001; 85025 ×4; 82728; 83735 ×2; 83540; 83550; 86922; 86900; 86901; 86850; 94760 ×3

== ENCOUNTER → 2019-08-13 | Outpatient (CLI) | payer MEDICARE, OTHER | LOC: GRHH 10:57 | PROVIDERS: ATTEND Family Medicine | DX: D50.0 Iron deficiency anemia secondary to blood loss (chronic) (principal) ==

== ENCOUNTER → 2019-09-25 | Outpatient (CLI) | payer MEDICARE, OTHER | LOC: GMAL 16:52 | PROVIDERS: ATTEND Family Medicine | DX: D50.0 Iron deficiency anemia secondary to blood loss (chronic) (principal) ==

== ENCOUNTER → 2020-01-01 | Outpatient (CLI) | payer MEDICARE, OTHER | DX: K74.69 Other cirrhosis of liver (principal); D50.0 Iron deficiency anemia secondary to blood loss (chronic) ==

== ENCOUNTER → 2020-04-17 | Outpatient (CLI) | payer MEDICARE, OTHER | LOC: GMAL 10:17 | PROVIDERS: ATTEND Family Medicine | DX: D50.0 Iron deficiency anemia secondary to blood loss (chronic) (principal); Z79.899 Other long term (current) drug therapy ==

== ENCOUNTER → 2020-07-21 | Outpatient (CLI) | payer MEDICARE, OTHER | LOC: GMAL 16:39 | PROVIDERS: ATTEND Family Medicine | DX: R39.15 Urgency of urination (principal) ==

== ENCOUNTER → 2020-07-29 | Outpatient (CLI) | payer MEDICARE, OTHER ==
--- NOTE | 2020-07-30 14:15 | US ---
EXAM DESCRIPTION: Abdomen,Complete: Ultrasound. CLINICAL HISTORY: 70 years Female CIRRHOSIS OF LIVER COMPARISON: None Available. TECHNIQUE: Transabdominal scanning: grayscale and Doppler modes.. Technically difficult study due to patient body habitus. FINDINGS: Gallbladder: normal size, shape, echogenicity; no intraluminal stones or sludge. No fluid around the gallbladder. No wall thickening. 2.8 mm. Non-tender with transducer pressure. Common bile duct: caliber 3.4 mm within normal limits. Liver: Minimally increased echogenicity; contour liver capsule scalloped where seen. No fluid around the liver. Intrahepatic biliary ducts normal caliber. Doppler hepatopedal flow and normal caliber portal vein 11.8 mm. Long axis right lobe 14.7 cm. Pancreas: normal size and increased echogenicity. Duct not seen. Complete abdominal aorta: Normal caliber from the proximal segment to the distal bifurcation.. IVC: visualized and normal caliber. Right kidney: long axis measures 8.0 cm; volume 74.8 mL.. Increased cortical echogenicity more than the liver.. 10.8 mm cortical thickness. No echogenic stones; no hydronephrosis. Left kidney: long axis measures 7.4 cm; volume 76.9 mL.. Increased cortical echogenicity more than the liver.. 3.1 cm simple cortical cyst lower pole. Normal cortical thickness. No echogenic stones; no hydronephrosis. Spleen: Normal. No focal lesions.. 16.9 cm long axis. Other: None. IMPRESSION: 1. Liver slightly echogenic with normal size and physiologic vascularity, but scalloped capsule. Is there clinical history of cirrhosis? No ascites. Pancreatic steatosis but normal size. 2. Gallbladder and common bile duct are negative. Splenomegaly with no focal lesions or fluid. 3. Bilateral kidneys with thin cortex, increased cortical echogenicity greater than the liver but no perirenal fluid or hydronephrosis. Correlate for chronic renal function problems. 3.1 cm cyst in the lower pole cortex of the left kidney. Normal caliber of the IVC and abdominal aorta. Electronically signed by: Roman Junior MD 07/30/2020 2:13 PM CDT
--- NOTE | 2020-07-31 17:51 | MAM ---
EXAM DESCRIPTION: 3D Screening BILATERAL : Digital Mammography. CLINICAL HISTORY: 70 years Female SCREEN . No complaints. No personal or family history of breast cancer. Menarche age 10. Childbirth age 25. Hysterectomy and oophorectomy age 29. HRT 5 or more years ago. Possible Restorationism heritage. Lifetime risk of developing breast cancer (Tyrer-Cuzick model)(%): 5.1. COMPARISON: Bilateral screening digital breast tomosynthesis May 2018. TECHNIQUE: Bilateral CC and MLO projection full-field images, digital tomosynthesis mammographic technique. Bilateral digital 2-D full-field MLO images. CAD available for 2-D images. FINDINGS: The breast parenchymal density pattern is: Scattered areas of fibroglandular density. No skin thickening or nipple retraction. Axillary nodes. Solitary microcalcifications. No new focal, stellate mass or density, focal asymmetry , and no suspicious microcalcifications bilaterally. Stable mammograms compared to prior study. IMPRESSION: Benign exam. BIRAD CATEGORY: 2 BENIGN FINDINGS. RECOMMENDATIONS: FOLLOW UP: Routine digital bilateral mammographic screening, one year interval from July 2020. Written communication explaining the IMPRESSION and follow-up, will be mailed to the patient and referring health care provider. According to the [employer], yearly mammograms are recommended starting at age 40 and continuing as long as a woman is in good health. Any breast change noted on a breast self-exam should be reported promptly to the patient's healthcare provider. Breast MRI is recommended for women with an approximately 20-25% or greater lifetime risk of breast cancer, including women with a strong family history of breast or ovarian cancer and women who have been treated for Hodgkin's disease. A negative mammographic report should not delay tissue diagnosis in patients with significant clinical history or physical findings. Extremely dense breast tissue limits the sensitivity of digital mammography. Electronically signed by: Roman Junior MD 07/31/2020 5:49 PM CDT
== END ==
LOC: US 13:30
PROVIDERS: ATTEND Internal Medicine
DX: Z12.31 Encounter for screening mammogram for malignant neoplasm of breast (principal); K74.60 Unspecified cirrhosis of liver; K86.89 Other specified diseases of pancreas; R16.1 Splenomegaly, not elsewhere classified; N28.9 Disorder of kidney and ureter, unspecified; N28.1 Cyst of kidney, acquired

== ENCOUNTER 2020-09-20 10:55 | Emergency (ER) | payer MEDICARE, OTHER ==
--- NOTE | 2020-09-20 11:37 | ED.PDOC ---
History of Present Illness - General Chief Complaint: Respiratory Problem Stated Complaint: cough,decreased oxygen sats,weakness Time Seen by Provider: 09/20/20 11:35 Source: patient Additional Information: PMHX OF DM TYPE 2 ON MEDS AND HTN ON MEDS, ALSO HAS HIS OR IDIOPATHIC CIRRHOSIS, PORTAL HTN AND RECENTLY DX W/ PRIMARY HEPATIC TUMOR FOR WHICH SHE WILL BE GETTING THERAPY FOR SOON. MULTIPLE FAMILY MEMBERS INCLUDING COVID POSITIVE. - History of Present Illness Comments: PATIENT W/ POSITIVE COVID TEST 3 DAYS AGO, SYMPTOMS OF COUGH X 3 DAYS, SHE FEELS SOME SOB AND SAYS HER O2 SAT HAS BEEN LOWER THAN HER USUAL, 93-94 AT HOME. STATES HER USUAL IS 97, Cough Quality/Degree: moderate Possible Cause: no prior episodes Improving Factors: nothing Worsening Factors: nothing Associated Symptoms: cough, fever/chills, nasal congestion, shortness of breath, other - LOSS OF TASTE Allergies/Adverse Reactions: Allergies Tizanidine [From Zanaflex] Allergy (Verified 09/20/20 11:15) Amoxicillin [From Augmentin] Adverse Reaction (Verified 08/09/19 17:52) Clavulanic Acid [From Augmentin] Adverse Reaction (Verified 08/09/19 17:52) Prochlorperazine [From Compazine] Adverse Reaction (Verified 08/09/19 17:52) Home Medications: Ambulatory Orders Furosemide 20 mg PO DAILY 08/09/19 Spironolactone 25 mg PO DAILY 08/09/19 Cholecalciferol [Vitamin D3] 50 mcg PO DAILY 09/20/20 Esomeprazole Magnesium [Nexium] 40 mg PO DAILY 09/20/20 Ferrous Sulfate [Iron (Ferrous Sulfate)] 50 mg PO DAILY 09/20/20 Magnesium 500 mg PO DAILY 09/20/20 Metformin HCl [Metformin Hydrochloride E] 250 mg PO DAILY 09/20/20 Tramadol HCl 50 mg PO PRN 09/20/20 Vitamin E 360 mg PO DAILY 09/20/20 Review of Systems - Review of Systems Constitutional: States: no symptoms reported EENTM: States: no symptoms reported Respiratory: States: see HPI Cardiology: States: no symptoms reported Gastrointestinal/Abdominal: States: no symptoms reported Genitourinary: States: no symptoms reported Musculoskeletal: States: no symptoms reported Skin: States: no symptoms reported Neurological: States: no symptoms reported Endocrine: States: no symptoms reported Hematologic/Lymphatic: States: no symptoms reported All other Systems: Reviewed and Negative Past Medical History (General) - Patient Medical History Hx Seizures: No Hx Stroke: No Hx Asthma: No Hx of COPD: No Hx Congestive Heart Failure: No Hx Hypertension: Yes Hx Diabetes: No Hx Gastroesophageal Reflux: Yes Hx Cancer: No Hx Hepatitis C: No Hx MRSA: No Surgical History: Hysterectomy - Vaccination History Hx Tetanus, Diphtheria Vaccination: Yes Hx Influenza Vaccination: Yes Hx Pneumococcal Vaccination: Yes - Social History Hx Tobacco Use: Yes Hx Alcohol Use: No Hx Substance Use: No Hx Substance Use Treatment: No Hx Depression: No Family Medical History - Family History Mother Family History: Unknown Physical Exam - Physical Exam General Appearance: Alert, Comfortable, Well Developed, Well Hydrated ENT Exam: normal ENT inspection Neck: non-tender, full range of motion, supple Respiratory: chest non-tender, lungs clear, normal breath sounds Cardiovascular/Chest: normal peripheral pulses, regular rate, rhythm, no edema Gastrointestinal/Abdominal: normal bowel sounds, non tender, soft Extremity: normal range of motion, non-tender, normal inspection Neurologic: quarter lining smoother II-XII nml as tested, no motor/sensory deficits, alert, oriented x 3 Skin Exam: normal color, warm/dry Progress - Progress Progress: 09/20/20 13:28 2 VIEW CXR NOT PERFORMED DUE TO PT HAVING KNOWN COVID AND ADDITIONAL EXPOSURE RISK NOT WARRANTED. 09/20/20 13:29 PATIENT WITH MILD COVID DZ EXCEPT IMPRESSIVE PANCYTOPENIA LIKELY RELATED TO COVID. PATIENT HAS NO HISTORY. SEVERE THROMBOCYTOPENIA AND LEUKOPENIA. PATIENT CERTAINLY WITH MARKERS AND HISTORY TO SUGGEST AT RISK FOR SEVERE DISEASE, HOWEVER AT THIS POINT DOES NOT HAVE A REASONABLE INDICATION TO RECOMMEND HOSPITALIZATION. INDEED, PATIENT'S RISK MIGHT EVEN BE INCREASED BY UNNESSESARY HOSPITALIZATION AT THIS TIME. 09/20/20 13:42 Departure - Departure Clinical Impression: COVID-19, Thrombocytopenia HTN (hypertension) Qualifiers: Hypertension type: essential hypertension Qualified Code(s): I10 - Essential (primary) hypertension Diabetes mellitus Qualifiers: Diabetes mellitus type: type 2 Diabetes mellitus intermediate insulin use: unspec ified intermediate insulin use status Diabetes mellitus complication status: without complication Qualified Code(s): E11.9 - Type 2 diabetes mellitus without complications Disposition: Discharge to Home or Self Care Departure Forms: ED Discharge - Pt. Copy, Patient Portal Self Enrollment Instructions: Coronavirus Disease 2019 (COVID-19), Bleeding Precautions Activity: no exercise, no lifting, other - MINIMIZE CHORES, OTHER THAN WALKING, AVOID USE OF TOOLS,KNIVES ETC OR ANYTHING THAT INCREASES RISK OF INJURY. Referrals: New David III, MD [Primary Care Provider] - 1-2 Weeks Home Medications: Ambulatory Orders Furosemide 20 mg PO DAILY 08/09/19 Spironolactone 25 mg PO DAILY 08/09/19 Cholecalciferol [Vitamin D3] 50 mcg PO DAILY 09/20/20 Esomeprazole Magnesium [Nexium] 40 mg PO DAILY 09/20/20 Ferrous Sulfate [Iron (Ferrous Sulfate)] 50 mg PO DAILY 09/20/20 Magnesium 500 mg PO DAILY 09/20/20 Metformin HCl [Metformin Hydrochloride E] 250 mg PO DAILY 09/20/20 Tramadol HCl 50 mg PO PRN 09/20/20 Vitamin E 360 mg PO DAILY 09/20/20 Additional Instructions: RECOMMEND REPEAT CBC THIS WEEK. CONTACT YOUR PCP FOR AN ORDER. RETURN TO ER FOR O2 SATURATION BELOW 90%.
[2020-09-20] MEDS ORDERED: SODIUM CHLORIDE 0.9% 250ML 250 ML ONE (12:11)
--- NOTE | 2020-09-20 12:25 | RAD ---
EXAM: XR Chest, 1 View CLINICAL HISTORY: COVID 19 TECHNIQUE: Frontal view of the chest. COMPARISON: 07/19/2019 FINDINGS: Lungs: Mild airspace disease in both lung bases not excluded versus overlying soft tissue attenuation. Pleural space: No pneumothorax or pleural effusion. Heart: Stable prominent cardiac shadow. Mediastinum: No abnormality noted. Bones/joints: No osseous destruction or sclerosis noted. IMPRESSION: Mild airspace disease in both lung bases not excluded versus overlying soft tissue attenuation. Recommend 2 view chest x-ray. Electronically signed by: Karol Carmona MD 09/20/2020 12:23 PM [facility]
[2020-09-20 14:43] VITALS: BP 120/70; TEMP 98.2; O2SAT 95
== END 2020-09-20 14:43 | disposition home or self-care (01) ==
LOC: ER 10:55
DX: U07.1 COVID-19 (principal); D69.6 Thrombocytopenia, unspecified; K74.69 Other cirrhosis of liver; D49.0 Neoplasm of unspecified behavior of digestive system; I10 Essential (primary) hypertension; E11.9 Type 2 diabetes mellitus without complications; K21.9 Gastro-esophageal reflux disease without esophagitis; Z87.891 Personal history of nicotine dependence; Z79.899 Other long term (current) drug therapy; Z88.8 Allergy status to other drugs, medicaments and biological substances; Z88.1 Allergy status to other antibiotic agents
CPT/HCPCS: 36415; 71045; 80053; 85025; 85379; 85610; 85730; 86140; J7050

== ENCOUNTER 2020-09-21 13:50 | Emergency (ER) | payer MEDICARE, OTHER ==
[2020-09-21 14:31] VITALS: TEMP 99.3
--- NOTE | 2020-09-21 14:55 | RAD ---
EXAM DESCRIPTION: Chest,1 View CLINICAL HISTORY: covid, intermittent hypoxia COMPARISON: September 20, 2020 FINDINGS: Cardiac silhouette is within normal limits. Aorta is tortuous. There is no focal parenchymal or pleural disease. There is no acute osseous process visualized. IMPRESSION: No evidence of acute cardiopulmonary disease. Electronically signed by: Erick Land MD 09/21/2020 2:53 PM [facility]END[facility]
[2020-09-21] MEDS ORDERED: predniSONE 20 MG TAB PO ONE (15:28)
--- NOTE | 2020-09-21 15:31 | ED.PDOC ---
History of Present Illness - General Chief Complaint: General Stated Complaint: COVID + Time Seen by Provider: 09/21/20 13:52 Source: patient Exam Limitations: no limitations - History of Present Illness Initial Comments: The patient is a 70-year-old female presented emergency room secondary to home. The patient apparently had a night with numerous symptoms including breaking out in a sweat and low-grade fevers. She had a monoclonal antibody given to her for coronavirus yesterday which I believe was completely appropriate. She is not appear to be in respiratory distress. Lung waldron are relatively clear with only very mild scattered rhonchi. The patient does have a longstanding history of pancytopenia apparently related to her chronic liver disease. White blood cell count was low at 0.8 yesterday. The patient is completing a course of azithromycin but is not currently on a steroid. No significant history of lung disease. Timing/Duration: 1 week Severity: mild Improving Factors: nothing Worsening Factors: nothing Associated Symptoms: cough, malaise Allergies/Adverse Reactions: Allergies Tizanidine [From Zanaflex] Allergy (Verified 09/21/20 14:35) Amoxicillin [From Augmentin] Adverse Reaction (Verified 09/21/20 14:35) Clavulanic Acid [From Augmentin] Adverse Reaction (Verified 09/21/20 14:35) Prochlorperazine [From Compazine] Adverse Reaction (Verified 09/21/20 14:35) Home Medications: Ambulatory Orders Furosemide 20 mg PO DAILY 08/09/19 Spironolactone 25 mg PO DAILY 08/09/19 Cholecalciferol [Vitamin D3] 50 mcg PO DAILY 09/20/20 Esomeprazole Magnesium [Nexium] 40 mg PO DAILY 09/20/20 Ferrous Sulfate [Iron (Ferrous Sulfate)] 50 mg PO DAILY 09/20/20 Magnesium 500 mg PO DAILY 09/20/20 Metformin HCl [Metformin Hydrochloride E] 250 mg PO DAILY 09/20/20 Tramadol HCl 50 mg PO PRN 09/20/20 Vitamin E 360 mg PO DAILY 09/20/20 Albuterol Inhaler [Ventolin Hfa Inhaler] 2 puff INH Q4H PRN #1 inh 09/21/20 Azithromycin 500 mg PO DAILY #5 tab 09/21/20 predniSONE [Prednisone] 40 mg PO DAILY #10 tab 09/21/20 Review of Systems - Review of Systems Constitutional: States: malaise EENTM: States: no symptoms reported Respiratory: States: cough Cardiology: States: no symptoms reported Gastrointestinal/Abdominal: States: no symptoms reported Genitourinary: States: no symptoms reported Musculoskeletal: States: no symptoms reported Skin: States: no symptoms reported Neurological: States: no symptoms reported Endocrine: States: no symptoms reported All other Systems: No Change from Baseline Past Medical History (General) - Patient Medical History Hx Seizures: No Hx Stroke: No Hx Asthma: No Hx of COPD: No Hx Congestive Heart Failure: No Hx Hypertension: Yes Hx Diabetes: No Hx Gastroesophageal Reflux: Yes Hx Cancer: No Hx Hepatitis C: No Hx MRSA: No Surgical History: tonsillectomy - Vaccination History Hx Tetanus, Diphtheria Vaccination: Yes Hx Influenza Vaccination: Yes Hx Pneumococcal Vaccination: Yes - Social History Hx Tobacco Use: Yes Hx Alcohol Use: No Hx Substance Use: No Hx Substance Use Treatment: No Hx Depression: No - Activities of Daily Living Hospice Agency (if applicable):: None - Female History Patient is a Female of Child Bearing Age (10 -59 yrs old): No Family Medical History - Family History Mother Family History: Unknown Physical Exam - Physical Exam General Appearance: Alert, Comfortable, No apparent distress Eye Exam: bilateral normal Ears, Nose, Throat: hearing grossly normal, normal pharynx Neck: full range of motion, supple Respiratory: no respiratory distress, no accessory muscle use, rhonchi - Very mild Cardiovascular/Chest: normal peripheral pulses, regular rate, rhythm, no edema Peripheral Pulses: radial,right: 2+, radial,left: 2+ Gastrointestinal/Abdominal: non tender, soft Rectal Exam: deferred Back Exam: no CVA tenderness, no vertebral tenderness Extremity: non-tender, normal inspection, no pedal edema, normal capillary refill 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 She was watched here for several hours and oxygen saturations largely ranged from 90 to 94% on room air while at rest. Chest x- ray was reassuring. White blood cell count had improved since yesterday. I am going to have the patient continue low-dose azithromycin for another 5 days and we will write her for 5 days oral prednisone. I do want her to follow back up with her primary care doctor in 2 to 3 days. She is to continue to spot check her oxygen levels. She did receive a dose of bamlanivimab yesterday which may be helping in light of her pancytopenia. No blood thinners are warranted as well due to the thrombocytopenia. She is to increase her hydration for the next couple of days and her to hold her water pills for the next few days as blood pressures are borderline low. ER warnings are given. henrietta mon [id number] - Results/Orders Results/Orders: Laboratory Tests 09/21/20 09/21/20 09/21/20 14:34 14:34 14:34 WBC 1.5 L* D RBC 3.51 L Hgb 11.4 L Hct 32.0 L MCV 91.2 MCH 32.3 H MCHC 35.5 RDW 14.3 Plt Count 26 L* MPV 9.5 Absolute Neuts (auto) 0.90 L Absolute Lymphs (auto) 0.50 L Absolute Monos (auto) 0.10 L Absolute Eos (auto) 0.00 Absolute Basos (auto) 0.00 Neutrophils % 58.0 Lymphocytes % 34.8 Monocytes % 6.4 Eosinophils % 0.1 L Basophils % 0.7 PT INR PTT (SP) Fibrinogen D-Dimer, Quantitative Sodium 133 L Potassium 3.3 L Chloride 99 L Carbon Dioxide 22 Anion Gap 15.3 BUN 18 Creatinine 0.92 BUN/Creatinine Ratio 19.6 Random Glucose 107 H Serum Osmolality 268.8 L Calcium 7.9 L Magnesium 1.8 Ferritin 619.3 H Total Bilirubin 1.7 H D AST 82 H ALT 45 Alkaline Phosphatase 75 LD Total Creatine Kinase 116 CK-MB (CK-2) 1.3 CK-MB (CK-2) % Not Reportable Troponin I 0.03 C-Reactive Protein B-Natriuretic Peptide 25.7 Serum Total Protein 6.9 Albumin 3.4 Globulin 3.5 Albumin/Globulin Ratio 1.0 L TSH 1.48 11/29/20 11/29/20 14:34 14:34 WBC RBC Hgb Hct MCV MCH MCHC RDW Plt Count MPV Absolute Neuts (auto) Absolute Lymphs (auto) Absolute Monos (auto) Absolute Eos (auto) Absolute Basos (auto) Neutrophils % Lymphocytes % Monocytes % Eosinophils % Basophils % PT 11.5 H INR 1.16 H PTT (SP) 33.2 H Fibrinogen 312 D-Dimer, Quantitative 791.0 H* Sodium Potassium Chloride Carbon Dioxide Anion Gap BUN Creatinine BUN/Creatinine Ratio Random Glucose Serum Osmolality Calcium Magnesium Ferritin Total Bilirubin AST ALT Alkaline Phosphatase LD Total 174 Creatine Kinase CK-MB (CK-2) CK-MB (CK-2) % Troponin I C-Reactive Protein 8.7 H* D B-Natriuretic Peptide Serum Total Protein Albumin Globulin Albumin/Globulin Ratio TSH Chest x-ray is reassuring. Departure - Departure Clinical Impression: Pancytopenia, COVID-19 virus infection Disposition: Discharge to Home or Self Care Condition: Fair Departure Forms: ED Discharge - Pt. Copy, Patient Portal Self Enrollment Instructions: Coronavirus Disease 2019 (COVID-19) Diet: diabetic diet Activity: increase activity as tolerated Referrals: New David III, MD [Primary Care Provider] - 1-2 Weeks Prescriptions: Azithromycin 500 mg PO DAILY #5 tab predniSONE [Prednisone] 40 mg PO DAILY #10 tab Albuterol Inhaler [Ventolin Hfa Inhaler] 2 puff INH Q4H PRN #1 inh PRN Reason: Shortness Of Breath Home Medications: Ambulatory Orders Furosemide 20 mg PO DAILY 08/09/19 Spironolactone 25 mg PO DAILY 08/09/19 Cholecalciferol [Vitamin D3] 50 mcg PO DAILY 09/20/20 Esomeprazole Magnesium [Nexium] 40 mg PO DAILY 09/20/20 Ferrous Sulfate [Iron (Ferrous Sulfate)] 50 mg PO DAILY 09/20/20 Magnesium 500 mg PO DAILY 09/20/20 Metformin HCl [Metformin Hydrochloride E] 250 mg PO DAILY 09/20/20 Tramadol HCl 50 mg PO PRN 09/20/20 Vitamin E 360 mg PO DAILY 09/20/20 Albuterol Inhaler [Ventolin Hfa Inhaler] 2 puff INH Q4H PRN #1 inh 09/21/20 Azithromycin 500 mg PO DAILY #5 tab 09/21/20 predniSONE [Prednisone] 40 mg PO DAILY #10 tab 09/21/20 Additional Instructions: The patient is a 70-year-old female with coronavirus with borderline low oxygen levels. She was watched here for several hours and oxygen saturations largely ranged from 90 to 94% on room air while at rest. Chest x- ray was reassuring. White blood cell count had improved since yesterday. I am going to have the patient continue low-dose azithromycin for another 5 days and we will write her for 5 days oral prednisone. I do want her to follow back up with her primary care doctor in 2 to 3 days. She is to continue to spot check her oxygen levels. She did receive a dose of bamlanivimab yesterday which may be helping in light of her pancytopenia. No blood thinners are warranted as well due to the thrombocytopenia. She is to increase her hydration for the next couple of days and her to hold her water pills for the next few days as blood pressures are borderline low. ER warnings are given.
[2020-09-21 15:48] VITALS: BP 91/53; O2SAT 95
== END 2020-09-21 15:45 | disposition home or self-care (01) ==
LOC: ER 13:50
DX: U07.1 COVID-19 (principal); D61.818 Other pancytopenia; K21.9 Gastro-esophageal reflux disease without esophagitis; I10 Essential (primary) hypertension; K76.9 Liver disease, unspecified; Z79.899 Other long term (current) drug therapy; Z87.891 Personal history of nicotine dependence; Z88.8 Allergy status to other drugs, medicaments and biological substances; Z88.1 Allergy status to other antibiotic agents
CPT/HCPCS: 36415; 71045; 80053; 82550; 82553; 82728; 83615; 83735; 83880; 84443; 84484; 85025; 85379; 85384; 85610; 85730; 86140; J7512